=== PATIENT | male | born 1980 | race Caucasian/White ===

== ENCOUNTER 2020-09-05 00:18 | Emergency (ER) | payer MEDICAID ==
[~2020-09-05] VITALS: Ht 182.9 cm; Wt 129.0 kg
[2020-09-05 00:19] VITALS: BP 147/105
--- NOTE | 2020-09-05 01:11 | NUR ---
Report received from FRANCOIS Red. This RN to assume care.
== END 2020-09-05 02:09 | disposition home or self-care (01) ==
LOC: ED 01:15
DX: S63.502A Unspecified sprain of left wrist, initial encounter (principal); M79.642 Pain in left hand; F17.210 Nicotine dependence, cigarettes, uncomplicated; X58.XXXA Exposure to other specified factors, initial encounter; Y93.55 Activity, bike riding; Y92.89 Other specified places as the place of occurrence of the external cause; Y99.8 Other external cause status
CPT/HCPCS: 29125; 99284; 99406